=== PATIENT | male | born 1950 | race Caucasian/White ===

== ENCOUNTER 2019-03-15 06:08 | Day surgery (SDC) | payer MEDICARE ==
[2019-03-12 12:39] LABS: BASOPHILS % (AUTO) 1.3 % (0.0-5.0); EOSINOPHILS % (AUTO) 2.5 % (0.0-8.0); HEMATOCRIT 47.6 % (42-54); MEAN CORPUSCULAR HEMOGLOBIN 33.1 pg (27.0-33.0); MEAN CORPUSCULAR HGB CONC 34.8 g/dL (32.0-36.0); MEAN CORPUSCULAR VOLUME 94.9 fL (79-99); MONOCYTES % (AUTO) 12.6 % (3.0-13.0); NEUTROPHILS % (AUTO) 65.6 % (40.0-77.0); PLATELET COUNT (AUTO) 145 K/uL (130-400); RED BLOOD CELL COUNT(AUTO) 5.02 MIL/uL (4.50-6.20); RED CELL DISTRIBUTION WIDTH 13.8 % (11.0-15.5); WHITE BLOOD COUNT (AUTO) 6.4 K/uL (4.8-10.8)
[2019-03-12 12:46] LABS: CREATININE 1.1 mg/dL (0.5-1.5); POTASSIUM 4.6 mmol/L (3.5-5.1)
[2019-03-12 12:50] LABS: BILIRUBIN,URINE Negative (NEGATIVE); COLOR,URINE Orange (YELLOW); GLUCOSE, URINE (UA) 250 mg/dL (NEGATIVE); KETONES,URINE Negative (NEGATIVE); LEUKOCYTE ESTERASE ,URINE Negative (NEGATIVE); NITRATE,URINE Negative (NEGATIVE); OCCULT BLOOD,URINE Negative (NEGATIVE); PROTEIN,URINE Negative (NEGATIVE)
[2019-03-12 12:51] LABS: INR 1.12 (0.85-1.15); PARTIAL THROMBOPLASTIN TIME 27.7 SEC (26.3-35.5); PROTHROMBIN TIME 11.7 SEC (9.6-11.6)
[2019-03-12 13:07] LABS: APPEARANCE,URINE CLEAR (CLEAR)
[2019-03-12 13:08] LABS: BACTERIA,URINE Few /HPF (None Seen); RBC,URINE 0-1 /HPF (0-1); SQUAMOUS EPITHELIAL CELL,UR 0-2 /HPF (0-2); WBC,URINE None Seen /HPF (0-1)
[2019-03-12 13:45] VITALS: BP 184/96
[2019-03-15] VITALS (9 sets, daily range): BP systolic 113–184; BP diastolic 65–96
[~2019-03-15] VITALS: Ht 167.6 cm; Wt 91.4 kg
[~2019-03-15 06:08] MED LIST: ASPI-555 PO; ATOR10 PO; EVOL140S SQ; LISI40TA4 PO; METF-444 PO; METO-409 PO; NAPR220C15 PO
[2019-03-15] MEDS ORDERED: SODIUM CHLORIDE 0.9% 1000ML 1,000 ML IV ONE (06:56)
[2019-03-15] MEDS ORDERED: SODIUM BICARB 50MEQ 50ML VIAL ONE (07:17)
[2019-03-15] MEDS ORDERED: LIDOCAINE HCL 2% 20ML ONE (07:18)
[2019-03-15] MEDS ORDERED: IODIXANOL 320 MG/ML 100 ML VIAL ONE (07:18)
[2019-03-15] MEDS ORDERED: NITROGLYCERIN 5 MG/ML 10 ML VIAL IV ONE (07:18)
[2019-03-15] MEDS ORDERED: HEPARIN SODIUM 1000UNIT/ML 10ML VIAL ONE (07:18)
--- NOTE | 2019-03-15 07:20 | NUR ---
PROCEDURE PT TAKEN TO ANILINE [employer] VIA BED, NO DISTRESS NOTED. FAMILY AT BEDSIDE
[2019-03-15] MEDS ORDERED: HYDRALAZINE HCL 20 MG/ML VIAL ONE (08:00)
[2019-03-15] MEDS ORDERED: IOHEXOL-350 50ML VIAL IV ONE (08:02)
[2019-03-15] MEDS ORDERED: SODIUM CHLORIDE 0.9% 1000ML 1,000 ML IV SCH (08:23)
[2019-03-15] MEDS ORDERED: GLUCAGON 1MG KIT 1 MG ML IM PRN (08:30)
[2019-03-15] MEDS ORDERED: DEXTROSE 50%-WATER 50 ML DISP.SYRIN IV PRN (08:30)
--- NOTE | 2019-03-15 08:40 | NUR ---
MD ROUNDS DR. PALACIOS IN TO SPEAK WITH REGARDING FINDINGS FROM PROCEDURE AND PLAN TO CONSULT SURGERY. VERBALIZED UNDERSTANDING.
--- NOTE | 2019-03-15 08:46 | NUR ---
POST-PROCEDURE RECEIVED FROM EDUCATION ADMINISTRATOR VIA BED S/P AYSE. CAROTID ANGIOGRAM BY DAYANA FOSTER RN. AWAKE IN NO ACUTE DISTRESS. DENIES PAIN. CONNECTED TO CONTINUOUS CARDIOPULMONARY MONITORING. EDUCATED PT ON IMPORTANCE OF KEEPING RIGHT LEG STRAIGHT AND HEAD FLAT. PT VERBALIZED UNDERSTANDING. SIDE RAILS UP X2, BED IN LOWEST POSITION, AND CALL LIGHT W/IN REACH.
--- NOTE | 2019-03-15 09:15 | NUR ---
MD ROUNDS DR. VAIL IN TO SEE PATIENT. SURGICAL OPTIONS DISCUSSED WITH PT AND . BOTH VERBALIZED UNDERSTANDING. PLAN IS FOR PT TO BE DISCHARGE TODAY AND F/U WITH DR. PALACIOS FOR SURGERY TO BE SCHEDULED. PT WILL START TAKING PLAVIX IN PREPARATION FOR SURGERY.
--- NOTE | 2019-03-15 10:02 | NUR ---
REPORT BEDSIDE REPORT GIVEN TO HERNANDO CHEEK USING SBAR. CATH SITE W/O SIGNS OF BLEEDING;DRESSING CLEAN, DRY, AND INTACT;SITE [id number].
--- NOTE | 2019-03-15 10:02 | NUR ---
PATIENT RESUMED CARE FOR PATIENT FROM ALYCIA PERRY RN. PT AWAKE AND ALERT IN BED, NO DISTRESS NOTED. RIGHT GROIN WITH NO HEMATOMA OR BLEEDING.
[2019-03-15] MEDS ORDERED: INSULIN HUMULIN R 100 UNIT/ML 3ML SQ SCH (11:30)
--- NOTE | 2019-03-15 12:34 | NUR ---
DC DC INSTRUCTIONS GIVEN TO PT'S/ SPOUSE WITH RX, INSTRUCTED TO F/U WITH DR. Caity PALACIOS AND HE WILL SPEAK TO THEM ABOUT PLANS FOR TCAR. BOTH VERBALIZED UNDERSTANDING. INSTRUCTED TO CONTINUE HOME MEDS, AND NEW MED REGIMEN POSSIBLE SIDE EFFECTS OF PLAVIX. PIV REMOVED SITE ASYMTOMATIC, INSTRUCTED ON POST CATH CARE AND PRECAUTIONS. RIGHT GROIN WITH PERCLOSE CLOSURE DEVICE. - DRESSING DRY AND INTACT, NO BLEEDING OR HEMATOMA TO SITE.
--- NOTE | 2019-03-15 13:00 | NUR ---
DC PT DC HOME VIA WC, NO DISTRESS NOTED. DENIED A [place] PAIN OR DISCOMFORTS. ACCOMPANIED BY SPOUSE.
== END 2019-03-15 13:00 | disposition home or self-care (01) ==
LOC: DAH 06:08
PROVIDERS: ATTEND Internal Medicine Cardiovascular Disease
DX: I65.23 Occlusion and stenosis of bilateral carotid arteries (principal); I77.1 Stricture of artery; I10 Essential (primary) hypertension; E11.9 Type 2 diabetes mellitus without complications; E78.00 Pure hypercholesterolemia, unspecified; Z88.8 Allergy status to other drugs, medicaments and biological substances; Z95.5 Presence of coronary angioplasty implant and graft; Z98.890 Other specified postprocedural states; Z79.82 Long term (current) use of aspirin; Z79.899 Other long term (current) drug therapy; Z79.84 Long term (current) use of oral hypoglycemic drugs; Z87.891 Personal history of nicotine dependence; Z72.89 Other problems related to lifestyle; Z82.49 Family history of ischemic heart disease and other diseases of the circulatory system; Z83.3 Family history of diabetes mellitus
CPT/HCPCS: 36223; 36225; 36415; 71045; 80048; 81001; 82948 ×3; 85025; 85610; 85730; 93005; A4215; A4216; A4221; A4222; A4223 ×3; A4606; A4663; A6260; C1760; C1894; J0360; J1644; J3490 ×3; J7030; Q9967 ×2